=== PATIENT | female | born 1980 | race Caucasian/White ===

== ENCOUNTER → 2022-02-09 13:18 | Outpatient (BNVA) | payer OTHER, SELFPAY | PROVIDERS: Family Provider Family Medicine; PCP Family Medicine; Referring Provider Radiology Diagnostic Radiology; Visit Provider Physician Assistant | DX: M54.50 Low back pain, unspecified (principal); M51.16 Intervertebral disc disorders with radiculopathy, lumbar region; M51.36 Other intervertebral disc degeneration, lumbar region | CPT/HCPCS: 72110 ==

== ENCOUNTER 2022-03-22 13:04 | Outpatient (CLI) | payer OTHER, SELFPAY ==
--- NOTE | 2022-03-22 13:00 | MR_ITS ---
WS: [id number] MRI LUMBAR SPINE NONCONTRAST TECHNIQUE: Sagittal T1, T2 and STIR imaging. Axial T1 and T2 imaging. CLINICAL INFORMATION: DDD COMPARISON: None. FINDINGS: Mild lumbar curve. No acute compression. No high-grade central canal stenosis. Postoperative changes C5-C6 seen on the sizing machine tender imaging. Disc space narrowing worse L5-S1 lumbar spine. L1-L2: Normal. L2-L3: No significant disc bulging. Moderate facet arthropathy. Spinal canal and foramen are patent. L3-L4: Mild annular bulging with slight effacement of the ventral thecal sac. Moderate to advanced fa cet arthropathy with ligamentum flavum hypertrophy. Spinal canal and foramen are patent. L4-L5: Mild disc bulging with osteophytic ridging. Mild RIGHT and no significant LEFT foraminal narro wing. Moderate facet arthropathy. L5-S1: Mild disc bulging with osteophytic ridging. Slight contact of the LEFT S1 nerve root in the waller barticular recess. Foramen are patent. Mild facet arthropathy. Nabothian cysts partially visualized in the cervix. MR/MR lumbar spine wo con* [id number] IMPRESSION: 1. Mild lumbar curve. No acute compression. No high-grade central canal stenos is. 2. Disc space narrowing worse L5-S1 with osteophytic ridging. Disc osteophyte protrusion at this level slightly impinges the LEFT S1 nerve root. Recommend co rrelation LEFT S1 nerve root symptoms. 3. Mild RIGHT L4-L5 foraminal narrowing due to RIGHT eccentric disc osteophyti c ridging. 4. Minimal annular bulging L3-L4. 5. Moderate to advanced facet arthropathy L3-L4 and moderate facet arthropathy L4-L5.
== END 2022-03-22 13:05 | disposition home or self-care (01) ==
PROVIDERS: PCP Family Medicine; Visit Provider Physician Assistant
DX: M51.36 Other intervertebral disc degeneration, lumbar region (principal)
CPT/HCPCS: 72148

== ENCOUNTER 2022-04-07 06:00 | Outpatient (RCR) | payer OTHER, SELFPAY | END 2022-04-29 23:59 | disposition home or self-care (01) | LOC: GPT 06:00 | PROVIDERS: PCP Family Medicine; Referring Provider Orthopaedic Surgery; Visit Provider Orthopaedic Surgery | DX: M54.50 Low back pain, unspecified (principal) | CPT/HCPCS: 97110; 97112; 97140; 97162; G0283 ==

== ENCOUNTER 2022-04-30 06:00 | Outpatient (RCR) | payer OTHER, SELFPAY | END 2022-05-30 23:59 | disposition home or self-care (01) | LOC: GPT 06:00 | PROVIDERS: PCP Family Medicine; Referring Provider Orthopaedic Surgery; Visit Provider Orthopaedic Surgery | DX: M54.50 Low back pain, unspecified (principal) | CPT/HCPCS: 97110; 97112; 97530 ==

== ENCOUNTER 2022-05-31 06:00 | Outpatient (RCR) | payer OTHER, SELFPAY | END 2022-06-30 23:59 | disposition home or self-care (01) | LOC: GPT 06:00 | PROVIDERS: PCP Family Medicine; Visit Provider Orthopaedic Surgery | DX: M54.50 Low back pain, unspecified (principal) | CPT/HCPCS: 97110; 97112; 97140; 97164 ==

== ENCOUNTER 2022-07-01 06:00 | Outpatient (RCR) | payer OTHER, SELFPAY | END 2022-07-30 23:59 | disposition home or self-care (01) | LOC: GPT 06:00 | PROVIDERS: PCP Family Medicine; Visit Provider Orthopaedic Surgery | DX: M54.50 Low back pain, unspecified (principal) | CPT/HCPCS: 97110; 97112; 97140; G0283 ==

== ENCOUNTER 2022-07-31 06:00 | Outpatient (RCR) | payer OTHER, SELFPAY | END 2022-08-30 23:59 | disposition home or self-care (01) | LOC: GPT 06:00 | PROVIDERS: PCP Family Medicine; Visit Provider Orthopaedic Surgery | DX: M54.50 Low back pain, unspecified (principal) | CPT/HCPCS: 97110; 97112; 97164 ==

== ENCOUNTER 2022-08-31 06:00 | Outpatient (RCR) | payer OTHER, SELFPAY | END 2022-09-29 23:59 | disposition home or self-care (01) | LOC: GPT 06:00 | PROVIDERS: PCP Family Medicine; Visit Provider Orthopaedic Surgery | DX: M54.50 Low back pain, unspecified (principal) | CPT/HCPCS: 97110; 97112 ==

== ENCOUNTER 2022-09-30 06:00 | Outpatient (RCR) | payer OTHER, SELFPAY | END 2022-10-30 23:59 | disposition home or self-care (01) | LOC: GPT 06:00 | PROVIDERS: PCP Family Medicine; Visit Provider Orthopaedic Surgery | DX: M54.50 Low back pain, unspecified (principal) | CPT/HCPCS: 97110; 97112 ==

== ENCOUNTER → 2024-06-05 10:19 | Outpatient (BNVA) | payer BC, SELFPAY | PROVIDERS: PCP Family Medicine; Visit Provider Nurse Practitioner Women's Health | DX: N92.6 Irregular menstruation, unspecified (principal) | CPT/HCPCS: 76830; 76856 ==

== ENCOUNTER → 2024-07-17 10:20 | Outpatient (BNVA) | payer BC, SELFPAY | PROVIDERS: PCP Family Medicine; Visit Provider Obstetrics & Gynecology | DX: Z12.4 Encounter for screening for malignant neoplasm of cervix (principal) | CPT/HCPCS: 87624 ==

== ENCOUNTER → 2025-09-23 10:37 | Outpatient (BNVA) | payer OTHER, SELFPAY | PROVIDERS: PCP Family Medicine; Visit Provider Orthopaedic Surgery | DX: M25.561 Pain in right knee (principal) | CPT/HCPCS: 73560; 73565 ==

== ENCOUNTER 2025-10-11 13:34 | Outpatient (CLI) | payer OTHER, SELFPAY ==
--- NOTE | 2025-10-11 13:45 | MR_ITS ---
WS: [id number] MRI RIGHT KNEE NONCONTRAST TECHNIQUE: Axial PD, coronal PD fat sat, coronal PD, sagittal PD, and sagittal PD fat-sat images obtained. CLINICAL INFORMATION: right knee pain COMPARISON: None. FINDINGS: Distal quadriceps and patella tendons are intact. Hypertrophic patella. ACL and PCL appear intact. 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 Small amount of edema involving the inferior medial pole of the patella at the medial patellar retinacular insertion. Recommend correlation with patellar instability. Sug gestion of a tiny tear at the medial patellar retinaculum insertion. Somewhat shallow trochlear groove. Prepatellar soft tissue edema. Medial and lateral collateral ligaments appear intact. Normal popliteal fossa. Tendinopathy popliteus. Diffuse moderate chronic thinning of the medial and lateral meniscus. Mild peripheral extrusion of the medial meniscus. Suggestion of a small horizontal tear involving the posterior horn medial meniscus at the periphery. MR/MR knee RT wo con* [id number] IMPRESSION: 1. ACL and PCL appear intact. 2. Moderate chronic thinning of the medial and lateral meniscus with suggestio n of a tiny horizontal tear involving the posterior horn medial meniscus extend ing to the periphery 3. 2-3 chondromalacia patella with a small amount of edema and irregularity at the medial patellar retinacular insertion suspicious for partial tear. Recomme nd correlation with patellar instability. Somewhat shallow trochlear groove. 4. Medial and lateral collateral ligaments appear intact. 5. Tendinopathy popliteus. 6. No other acute findings. Outbridge grading: grade III: partial-thickness cartilage loss with focal ulcer ation
== END 2025-10-11 13:35 | disposition home or self-care (01) ==
LOC: RAD 13:38
PROVIDERS: PCP Family Medicine; Visit Provider Orthopaedic Surgery
DX: M23.231 Derangement of other medial meniscus due to old tear or injury, right knee (principal); M79.89 Other specified soft tissue disorders; M22.41 Chondromalacia patellae, right knee; M17.11 Unilateral primary osteoarthritis, right knee; M94.9 Disorder of cartilage, unspecified
CPT/HCPCS: 73721